=== PATIENT | male | born 1965 | race Caucasian/White ===

== ENCOUNTER 2023-04-03 13:33 | Emergency (ER) | payer OTHER ==
[~2023-04-03] VITALS: Ht 190.5 cm; Wt 127.3 kg
[2023-04-03 13:48] VITALS: TEMP 98.8
[2023-04-03] MEDS ORDERED: morphine 4 MG/ML inj SYRINge IV ONE ×2 (14:25→18:45)
[2023-04-03] MEDS ORDERED: ondansetron/PF 4mg/2ml inj IM ONE (14:25)
--- NOTE | 2023-04-03 14:54 | NUR ---
PT TO RADIOLOGY VIA [employer]
[2023-04-03] MEDS ORDERED: CYCL-394 PO (16:25)
[2023-04-03] MEDS ORDERED: IBUP-1984 PO (16:25)
[2023-04-03 19:46] LABS: URINE AMPHETAMINE SCREEN NEGATIVE (Neg); URINE BARBITUATE SCREEN NEGATIVE (Neg); URINE BENZODIAZEPINES SCREEN NEGATIVE (Neg); URINE CANNABINOID SCREEN NEGATIVE (Neg); URINE COCAINE SCREEN NEGATIVE (Neg); URINE METHADONE SCREEN NEGATIVE (Neg); URINE OPIATE SCREEN POSITIVE (Neg); URINE PHENCYCLIDINE SCREEN NEGATIVE (Neg)
[2023-04-03] MEDS ORDERED: carVEDilol 3.125mg tablet PO SCH (20:00)
[2023-04-03 20:04] VITALS: BP 158/102; PULSE 79; RESP 16; O2SAT 97
== END 2023-04-03 20:05 | disposition home or self-care (01) ==
LOC: ER 13:33
DX: S40.012A Contusion of left shoulder, initial encounter (principal); F17.200 Nicotine dependence, unspecified, uncomplicated; V89.2XXA Person injured in unspecified motor-vehicle accident, traffic, initial encounter; Y93.89 Activity, other specified; Y92.89 Other specified places as the place of occurrence of the external cause; Y99.8 Other external cause status
CPT/HCPCS: 36415; 73010; 73030; 73080; 80305; 80320; 96374; 96376; 99284; J2270; J2405; A6449